=== PATIENT | female | born 1950 | race African-American/Black ===

== ENCOUNTER 2021-03-23 09:53 | Observation (INO) ==
[2021-03-23 10:19] LABS: Basophils % 0.5 % (0.0-0.8); Eosinophils # 0.1 10*3/uL (0.0-0.87); Eosinophils % 2.3 % (0.00-10.9); Hematocrit 42.2 VOL% (35.7-47.0); Hemoglobin 13.4 GM/DL (12.0-16.0); Immature Granulocytes % 0.4 %; Immature Granulocytes Absolute 0.02 #; Lymphocytes # 1.1 10*3/uL (1.4-4.0); Lymphocytes % 18.8 % (21.3-54.2); Mean Corpuscular HGB Conc 31.8 GM/DL (32-36); Mean Corpuscular Volume 79.8 FL (87-102); Mean Platelet Volume 10.4 FL (9.6-12.0); Monocytes % 7.6 % (1.7-12.7); Neutrophils % 70.4 % (38.7-73.9); Platelet Count 288 T/CUMM (130-400); Red Blood Count 5.29 MC/CUMM (3.8-5.5); Red Cell Distribution Width 14.4 % (9.3-17.3); White Blood Count 5.7 T/CUMM (4-12)
[2021-03-23 11:00] LABS: Albumin 3.5 G/DL (3.4-5.0); Bilirubin,Total 0.7 MG/DL (0.20-1.00); Calcium 8.8 MG/DL (8.5-10.1); Osmolality,Calculated 281.3 MOS/KG (273-304); Potassium 3.5 MMOL/L (3.5-5.1); Total Protein 6.7 G/DL (6.4-8.2)
[2021-03-23] MEDS ORDERED: hydrALAZINE 20 MG/1 ML VIAL IV STA (13:28)
[2021-03-23] MEDS ORDERED: ONDANSETRON 4 MG/2 ML VIAL IV PRN (16:54)
[2021-03-23] MEDS ORDERED: ACETAMINOPHEN 325 MG TABLET PO PRN (16:54)
[2021-03-23] MEDS ORDERED: SODIUM CHLORIDE 0.9% 1,000 ML IV SCH (16:54)
[2021-03-23] MEDS: DOCUSATE SODIUM 100 MG CAPSULE PO SCH (21:36)
[2021-03-23] MEDS: ENALAPRIL 10 MG TABLET PO SCH (21:36)
[2021-03-23] MEDS: cefTRIAXone 1,000 MG in SODIUM CHLORIDE 0.9% 100 ML IV SCH (21:36)
[2021-03-24 05:28] LABS: Bilirubin,Total 1.1 MG/DL (0.20-1.00); Osmolality,Calculated 286.7 MOS/KG (273-304); Potassium 3.3 MMOL/L (3.5-5.1); Total Protein 6.3 G/DL (6.4-8.2)
[2021-03-24] MEDS: DOCUSATE SODIUM 100 MG CAPSULE PO SCH ×2 (08:14→21:03)
[2021-03-24] MEDS: ENALAPRIL 10 MG TABLET PO SCH ×2 (08:14→21:03)
[2021-03-24] MEDS: ASPIRIN EC 81 MG TABLET PO SCH (08:14)
[2021-03-24] MEDS: PANTOPRAZOLE 40 MG TABLET PO SCH (08:14)
[2021-03-24] MEDS ORDERED: POTASSIUM CHLORIDE RIDER 10 MEQ/100 ML PREMIX IV PRN (08:29)
[2021-03-24] MEDS ORDERED: MAGNESIUM SULF RIDER 4 GM/100 ML PREMIX IV PRN (08:29)
[2021-03-24] MEDS ORDERED: MAGNESIUM SULF RIDER 2 GM/50 ML PREMIX IV PRN (08:29)
[2021-03-24] MEDS ORDERED: NEBIVOLOL 10 MG TABLET PO SCH (09:00)
[2021-03-24] MEDS ORDERED: FUROSEMIDE 40 MG/4 ML VIAL IV SCH ×2 (09:00→09:30)
[2021-03-24] MEDS: SPIRONOLACTONE 25 MG TABLET PO SCH (10:01)
[2021-03-24] MEDS ORDERED: POTASSIUM CHLORIDE 20 MEQ TABLET PO ONE (11:15)
[2021-03-24] MEDS: cefTRIAXone 1,000 MG in SODIUM CHLORIDE 0.9% 100 ML IV SCH (21:03)
[2021-03-25 06:54] LABS: Calcium 9.3 MG/DL (8.5-10.1); Osmolality,Calculated 280.3 MOS/KG (273-304); Potassium 3.4 MMOL/L (3.5-5.1)
[2021-03-25 07:00] LABS: % Iron Saturation 20.1 % (18-50); Ferritin 196.8 ng/mL (8-252); Risk Ratio 6.04; VLDL Cholesterol 33.2 MG/DL
[2021-03-25] MEDS ORDERED: POTASSIUM CHLORIDE 20 MEQ TABLET PO ONE (08:00)
[2021-03-25] MEDS ORDERED: DAPAGLIFLOZIN 10 MG TABLET PO SCH (09:00)
[2021-03-25] MEDS ORDERED: NEBIVOLOL 5 MG TABLET PO SCH ×2 (09:00)
[2021-03-25] MEDS: ENALAPRIL 10 MG TABLET PO SCH (09:09)
[2021-03-25] MEDS: PANTOPRAZOLE 40 MG TABLET PO SCH (09:09)
[2021-03-25] MEDS: ASPIRIN EC 81 MG TABLET PO SCH (09:09)
[2021-03-25] MEDS: DOCUSATE SODIUM 100 MG CAPSULE PO SCH (09:10)
[2021-03-25] MEDS: SPIRONOLACTONE 25 MG TABLET PO SCH (09:10)
[2021-03-25 11:34] VITALS: BP 140/84
== END 2021-03-25 13:34 | disposition home or self-care (01) ==
LOC: N.EDINP 09:53 → N.ED 09:53 → N.EDINP 16:42 → N.3E 16:57
PROVIDERS: ADMIT Family Medicine; ATTEND Family Medicine